=== PATIENT | male | born 1960 | race Caucasian/White ===

== ENCOUNTER 2017-05-01 09:54 | Inpatient (IN) | payer OTHER ==
[~2017-05-01] VITALS: Ht 180.3 cm; Wt 93.5 kg
[2017-05-01 11:21] LABS: EOSINOPHIL (%) 0.2 % (0-5); HEMATOCRIT 50.6 % (38.0-50.0); IMMATURE GRANULOCYTE (%) 0.6 % (0.0-0.7); IMMATURE GRANULOCYTE COUNT 0.1 K/uL; INSTRUMENT ABS NEUTROPHIL CT 10.1 K/uL; LYMPHOCYTE COUNT 1.7 K/uL (1.0-2.8); MCH 30.9 PG (29.0-34.0); MCV 88.3 FL (86-99); MEAN PLAT.VOLUME 11.4 uM^3 (9.0-12.4); MONOCYTE (%) 5.3 % (3-12); MONOCYTE COUNT 0.7 K/uL (0-0.8); NEUTROPHIL (%) 80.2 % (45-76); NEUTROPHIL COUNT 10.1 K/uL (1.8-6.4); PLATELET COUNT 137 K/uL (156-360); RBC DIS.WIDTH-CV 13.6 % (11.8-14.6); RBC DIS.WIDTH-SD 44.3 % (39-53); RED BLOOD COUNT 5.73 M/uL (4.00-5.50); WHITE BLOOD COUNT 12.5 K/uL (4.1-10.2)
[2017-05-01 11:32] LABS: CHLORIDE 99 mEq/L (99-109); POTASSIUM 4.1 mEq/L (3.7-5.4); SODIUM 131 mEq/L (136-147)
[2017-05-01 11:34] LABS: GLUCOSE 252 mg/dL (70-99)
[2017-05-01 11:35] LABS: ANION GAP 14 MEQ/L (2-14)
[2017-05-01 11:36] LABS: TOTAL BILIRUBIN 0.5 mg/dL (0.0-1.0)
[2017-05-01 11:37] LABS: ALKALINE PHOSPHATASE 57 IU/L (3-129)
[2017-05-01 11:38] LABS: GFR ESTIMATE (CALCULATED) > 59 mL/min/
[2017-05-01 11:39] LABS: UREA NITROGEN (BUN) 9 mg/dL (9-23)
[2017-05-01 11:41] LABS: CREATINE KINASE 99 IU/L (1-294); TOTAL CK 99 IU/L (1-294)
[2017-05-01 11:46] LABS: CK-MB 1.1 ng/mL (0.0-4.9)
[2017-05-01 12:47] LABS: PROTHROMBIN TIME 11.7 SEC (10.2-12.9)
[2017-05-01 12:49] LABS: PTT 31.4 SEC (25-37)
[2017-05-01 14:47] LABS: HDL CHOLESTEROL 25 MG/DL (Desirable>=40); NON-HDL CHOLESTEROL 204 mg/dL (Desirable<160); TOTAL CHOLESTEROL 229 mg/dL (Desirable<200); TRIGLYCERIDES 942 MG/DL (Normal: <150)
[2017-05-01 14:48] LABS: Estimated Average Glucose 243 mg/dL (70-123); HEMOGLOBIN A1c (GLYCOHEMOGLOB) 10.1 % HGB (Below 5.7)
[2017-05-01 17:47] VITALS: BP 165/83
[2017-05-01 19:23] VITALS: BP 163/82
[2017-05-01 23:19] VITALS: BP 166/84
[2017-05-02 05:40] VITALS: BP 162/85
[2017-05-02 07:21] LABS: HEMATOCRIT 47.5 % (38.0-50.0); MCH 31.3 PG (29.0-34.0); MCHC 34.9 G/DL (30.0-36.0); MCV 89.5 FL (86-99); MEAN PLAT.VOLUME 12.1 uM^3 (9.0-12.4); PLATELET COUNT 125 K/uL (156-360); RBC DIS.WIDTH-CV 13.9 % (11.8-14.6); RBC DIS.WIDTH-SD 45.5 % (39-53); RED BLOOD COUNT 5.31 M/uL (4.00-5.50)
[2017-05-02 07:38] LABS: ANION GAP 8 MEQ/L (2-14); CHLORIDE 102 MEQ/L (99-109); GFR ESTIMATE (CALCULATED) > 59 mL/min/; GLUCOSE 217 mg/dL (70-99); POTASSIUM 4.1 MEQ/L (3.7-5.4); SAMPLE HEMOLYSIS CHECK 0; SAMPLE ICTERIC CHECK 0; SAMPLE LIPEMIA CHECK 0; SODIUM 135 MEQ/L (136-147); UREA NITROGEN (BUN) 9 mg/dL (9-23)
[2017-05-02 07:55] VITALS: BP 154/83
[2017-05-02 11:57] VITALS: BP 142/86
[2017-05-02 14:35] LABS: POINT-OF-CARE METER ID UU14188577
[2017-05-02 16:26] VITALS: BP 156/85
[2017-05-02 16:57] LABS: POINT-OF-CARE METER ID UU14188577
[2017-05-02 19:31] VITALS: BP 151/83
[2017-05-02 21:28] LABS: POINT-OF-CARE METER ID UU14117124
[2017-05-02 23:18] VITALS: BP 137/83
[2017-05-03 03:35] VITALS: BP 142/87
[2017-05-03 06:13] LABS: POINT-OF-CARE METER ID UU14149397
[2017-05-03 08:08] VITALS: BP 158/85
[2017-05-03 11:23] VITALS: BP 141/80
[2017-05-03 11:44] LABS: POINT-OF-CARE METER ID UU14117124
[2017-05-03 15:51] VITALS: BP 141/86
[2017-05-03 16:48] LABS: POINT-OF-CARE METER ID UU14149397
[2017-05-03 20:09] VITALS: BP 144/82
[2017-05-03 21:32] LABS: POINT-OF-CARE METER ID UU14208753
[2017-05-03 23:42] VITALS: BP 137/83
[2017-05-04 04:49] VITALS: BP 134/81
[2017-05-04 06:44] LABS: POINT-OF-CARE METER ID UU14117124
[2017-05-04 08:35] VITALS: BP 151/78
[2017-05-04 11:51] LABS: POINT-OF-CARE METER ID UU14149397
[2017-05-04 12:24] VITALS: BP 127/79
[2017-05-04 16:36] VITALS: BP 137/80
[2017-05-04 16:54] LABS: POINT-OF-CARE METER ID UU14188577
[2017-05-04 21:58] LABS: POINT-OF-CARE METER ID UU13113675; POINT-OF-CARE USER ID ADMKMM76
[2017-05-04 23:51] VITALS: BP 160/78
[2017-05-05 00:18] LABS: POINT-OF-CARE METER ID UU14117124
[2017-05-05 03:51] VITALS: BP 116/67
[2017-05-05 06:41] LABS: POINT-OF-CARE METER ID UU14117124
[2017-05-05 06:59] LABS: HEMATOCRIT 43.5 % (38.0-50.0); MCV 89.7 FL (86-99)
[2017-05-05 07:27] LABS: ANION GAP 10 MEQ/L (2-14); CHLORIDE 100 MEQ/L (99-109); GFR ESTIMATE (CALCULATED) > 59 mL/min/; GLUCOSE 164 mg/dL (70-99); POTASSIUM 4.1 MEQ/L (3.7-5.4); SAMPLE HEMOLYSIS CHECK 0; SAMPLE ICTERIC CHECK 0; SAMPLE LIPEMIA CHECK 0; SODIUM 135 MEQ/L (136-147); UREA NITROGEN (BUN) 12 mg/dL (9-23)
[2017-05-05 08:50] VITALS: BP 128/81
[2017-05-05 11:10] VITALS: BP 126/70
[2017-05-05 11:45] LABS: POINT-OF-CARE METER ID UU14188577
[2017-05-05 13:37] LABS: TROP-I INTERPRETATION NEGATIVE; TROPONIN-I 0.03 ng/mL (0.0-0.30)
[2017-05-05 16:35] VITALS: BP 116/69
[2017-05-05 17:05] LABS: POINT-OF-CARE METER ID UU14188577
[2017-05-05 19:28] VITALS: BP 131/74
[2017-05-05 21:25] LABS: POINT-OF-CARE METER ID UU14117124
[2017-05-05 23:32] VITALS: BP 124/69
[2017-05-06 04:29] VITALS: BP 134/70
[2017-05-06 06:34] LABS: POINT-OF-CARE METER ID UU14188577
[2017-05-06 07:02] LABS: HEMATOCRIT 41.7 % (38.0-50.0); MCV 90.3 FL (86-99)
[2017-05-06 07:43] VITALS: BP 126/74
[2017-05-06 10:59] VITALS: BP 124/67
[2017-05-06 11:07] LABS: POINT-OF-CARE METER ID UU14188577
[2017-05-06 15:09] VITALS: BP 131/76
[2017-05-06 16:17] LABS: POINT-OF-CARE METER ID UU14188577
[2017-05-06 19:17] VITALS: BP 129/74
[2017-05-06 21:25] LABS: POINT-OF-CARE METER ID UU14188577
[2017-05-06 23:27] VITALS: BP 118/58
[2017-05-07 03:25] VITALS: BP 115/67
[2017-05-07 06:18] LABS: HEMATOCRIT 39.3 % (38.0-50.0); MCH 31.1 PG (29.0-34.0); MCHC 34.9 G/DL (30.0-36.0); MCV 89.3 FL (86-99); PLATELET COUNT 144 K/uL (156-360); RBC DIS.WIDTH-CV 13.5 % (11.8-14.6); RBC DIS.WIDTH-SD 44.7 % (39-53); WHITE BLOOD COUNT 7.6 K/uL (4.1-10.2)
[2017-05-07 06:26] LABS: POINT-OF-CARE METER ID UU14117124
[2017-05-07 06:39] LABS: ANION GAP 10 MEQ/L (2-14); CHLORIDE 102 MEQ/L (99-109); GFR ESTIMATE (CALCULATED) > 59 mL/min/; GLUCOSE 124 mg/dL (70-99); SAMPLE HEMOLYSIS CHECK 0; SAMPLE ICTERIC CHECK 0; SAMPLE LIPEMIA CHECK 0; SODIUM 137 MEQ/L (136-147); UREA NITROGEN (BUN) 10 mg/dL (9-23)
[2017-05-07 08:23] VITALS: BP 125/67
[2017-05-07 11:45] VITALS: BP 134/75
[2017-05-07 12:14] LABS: POINT-OF-CARE METER ID UU14188577
[2017-05-07] MEDS ORDERED: OXYCONTIN10 MG PO (12:54)
[2017-05-07] MEDS ORDERED: POLYETHYLENE GL17 GM PO (12:54)
[2017-05-07] MEDS ORDERED: NICOTINE PATCH1 EAC2 TD (12:54)
[2017-05-07] MEDS ORDERED: ELIQUIS2.5 MG PO (12:54)
[2017-05-07] MEDS ORDERED: ASPIR-LOW81 MG PO (12:54)
[2017-05-07] MEDS ORDERED: LOPRESSOR25 MG PO (12:54)
[2017-05-07] MEDS ORDERED: LISINOPRIL2.5 MG PO (12:54)
[2017-05-07] MEDS ORDERED: THERAGRAN1 TABLET PO (12:54)
[2017-05-07] MEDS ORDERED: ATORVASTATIN CA80 MG PO (12:54)
[2017-05-07] MEDS ORDERED: DOCUSATE SODIU100 MG PO (12:54)
[2017-05-07 16:44] VITALS: BP 116/74
== END 2017-05-07 16:42 | DRG 470 ==
LOC: EME 09:54 → EDOF 13:01 → 3EAST 13:01 → ENRESERV 13:03 → 3EAST 17:47
PROVIDERS: Emergency Medicine; Internal Medicine; Internal Medicine Cardiovascular Disease; Orthopaedic Surgery; Physician Assistant
PROC: 0SR902A Replacement of Right Hip Joint with Metal on Polyethylene Synthetic Substitute, Uncemented, Open Approach (ICD-10-PCS; principal; 2017-05-04)
DX: S72.001A Fracture of unspecified part of neck of right femur, initial encounter for closed fracture (principal); W07.XXXA Fall from chair, initial encounter; D69.6 Thrombocytopenia, unspecified; E87.1 Hypo-osmolality and hyponatremia; I11.9 Hypertensive heart disease without heart failure; I25.10 Atherosclerotic heart disease of native coronary artery without angina pectoris; E11.9 Type 2 diabetes mellitus without complications; E86.0 Dehydration; G89.18 Other acute postprocedural pain; E78.5 Hyperlipidemia, unspecified; G89.29 Other chronic pain; M25.511 Pain in right shoulder; M79.604 Pain in right leg; H26.9 Unspecified cataract; H54.7 Unspecified visual loss; K59.00 Constipation, unspecified; I25.2 Old myocardial infarction; F41.9 Anxiety disorder, unspecified; F10.10 Alcohol abuse, uncomplicated; Z95.5 Presence of coronary angioplasty implant and graft; Z91.19 Patient's noncompliance with other medical treatment and regimen; F17.210 Nicotine dependence, cigarettes, uncomplicated
CPT/HCPCS: 73501; 73502; 73552; 80048; 80053; 80061; 82550; 82553; 82948; 83036; 84484; 85014; 85018; 85025; 85027; 85610; 85730; 86850; 86900; 86901; 93005; 93306; 94799; 99202; 99281; 99285; J0131; J0330; J1100; J1170; J1650; J1815; J1885; J2060; J2250; J2270; J2405; J2710; J3010; J7030